=== PATIENT | female | born 1955 | race Caucasian/White ===

== ENCOUNTER 2022-07-16 06:39 | Day surgery (SDC) | payer OTHER ==
[~2022-07-16] VITALS: Ht 152.4 cm; Wt 63.1 kg
[~2022-07-16 06:39] MED LIST: ALBU8HFA IH; AZEL137S8 NASAL; BECL10.62 IH; DICL100G31 TP; FAMO20TA8 PO; MONT-40 PO; SIMV-46 PO
[2022-07-16] MEDS ORDERED: ALBUTEROL SULFATE 2.5 MG/0.5 ML NEB SOLUTION NEB ONE (06:40)
[2022-07-16] MEDS ORDERED: LIDOCAINE 2% 11 ML JELLY TP ONE (06:40)
[2022-07-16] MEDS ORDERED: BENZOCAINE 20% 50 MCG/SPRAY 57 GM TP ONE (06:40)
[2022-07-16] MEDS ORDERED: SODIUM CHLORIDE 0.9% 1,000 ML ONE (06:40)
[2022-07-16] MEDS ORDERED: LIDOCAINE 4% 50 ML SOLUTION TP ONE (06:40)
[2022-07-16 06:53] LABS: COVID AG,FIA SOURCE NASAL SWAB
[2022-07-16] MEDS ORDERED: SODIUM CHLORIDE 0.9% 1,000 ML IV ONE (07:00)
[2022-07-16] MEDS ORDERED: MIDAZOLAM HCL 2 MG/2 ML VIAL ONE (07:44)
[2022-07-16] MEDS ORDERED: FentaNYL CITRATE PF 100 MCG/2 ML VIAL ONE (07:45)
[2022-07-16] MEDS ORDERED: MethylPREDNISolone SOD SUCC 125 MG/2 ML VIAL IVP ONE (09:30)
== END 2022-07-16 11:35 | disposition home or self-care (01) ==
LOC: SURGERY 06:39
PROVIDERS: ATTEND Internal Medicine Critical Care Medicine
DX: R05.3 Chronic cough (principal); J98.8 Other specified respiratory disorders; Z20.822 Contact with and (suspected) exposure to COVID-19; J98.09 Other diseases of bronchus, not elsewhere classified; Z79.899 Other long term (current) drug therapy
CPT/HCPCS: 31623; 87101; 87220; 87070; 31624; 71045; 87015; 87426; 87206; J3010; J2250; J2930; Q9967; J7030; C9803; 88112; J7613; Z7610